=== PATIENT | male | born 1965 | race Caucasian/White ===

== ENCOUNTER 2020-04-23 14:30 | Emergency (ER) | payer OTHER ==
[~2020-04-23] VITALS: Ht 180.3 cm; Wt 131.5 kg
[~2020-04-23 14:30] MED LIST: CEFA250; FLUO20 PO; GUAPHELA PO; HYDACE10A PO; HYDACE5325 PO; IBUP200; METO100ER; NAPR500 PO; PROM25 PO; RXLORA1 PO; SERT25
[2020-04-23] MEDS ORDERED: METO50 PO (17:06)
[2020-04-23] MEDS ORDERED: MULTI-VITAMIN1 EAC2 PO (17:07)
[2020-04-23] MEDS ORDERED: ZYLOPRIM300 M1 PO (17:07)
== END 2020-04-23 18:45 | disposition home or self-care (01) ==
LOC: ER 14:30
DX: S01.81XA Laceration without foreign body of other part of head, initial encounter (principal); I10 Essential (primary) hypertension; Z88.5 Allergy status to narcotic agent; Z23 Encounter for immunization; Z79.899 Other long term (current) drug therapy; W22.8XXA Striking against or struck by other objects, initial encounter; Y92.89 Other specified places as the place of occurrence of the external cause; Y99.0 Civilian activity done for income or pay
CPT/HCPCS: 12011; 90471; 90714; 99282-25